=== PATIENT | female | born 1945 | race Caucasian/White ===

== ENCOUNTER 2024-10-24 15:24 | Inpatient (IN) | payer MEDICARE, MEDICAID, SELFPAY ==
[2024-10-24 15:44] VITALS: PULSE 85; O2SAT 99; BMI 19.4
[2024-10-24 15:49] VITALS: BP 150/60; PULSE 87; RESP 14; TEMP 36.8; O2SAT 93
--- NOTE | 2024-10-24 16:29 | EKG_ITS ---
[facility] Test Date: 2024-10-24 Pat Name: RICHARD HUANG Department: Room: - Gender: Female Stores Clerk: : [id number] Requested By: Roly Gibson Order Number: [id number] Reading MD: Roly Gibson Measurements Intervals [place] Rate: 82 P: 52 NC: 112 QRS: 76 QRSD: 79 T: 71 QT: 353 QTc: 415 Interpretive Statements SINUS RHYTHM WITH SHORT NC INTERVAL Compared to ECG 03/28/2024 12:31:59 Short NC interval now present Sinus tachycardia no longer present T-wave abnormality no longer present /store/S0/[id number].pdf
--- NOTE | 2024-10-24 16:44 | PC.NURSE ---
BROOKLYN KOCH WAS ABLE TO ANSWER SOME QUESTION IN REGARDS TO PATIENT MEDICAL HISTORY. 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 CURRENTLY PT ONLY RESPONSES TO PAIN STIMULI. PT DOES NOT RESPOND TO NAME. CAREGIVER CURRENTLY AT BEDSIDE JOY.
--- NOTE | 2024-10-24 18:09 | XR_ITS ---
Examination: AP chest single view TECHNIQUE: AP portable semiupright chest single view Date and time: October 24, 2024 1820 hours Comparison March 28, 2024 INDICATION: Chest pain shortness of breath beginning 2 days ago. FINDINGS: Normal heart size. Lungs are clear. The osseous structures are intact. IMPRESSION: No active disease.
--- NOTE | 2024-10-24 18:12 | PD.EDAMS ---
Altered Mental Status RME/HPI General Chief Complaint: Altered Mental Status Stated Complaint: SOB Time Seen by Provider: 10/24/24 21:45 Arrival date/time: 10/24/24 15:24 78-year-old female presents to the ED via EMS with an apparent complaint of weakness and altered mental status. Caregiver at bedside indicates the patient was normal on Sunday when she left her shift at the halfway. Care provider indicates that the hospice nurse believes the patient had pneumonia and started her on antibiotics which she has been taking since Sunday. She has had a decreased appetite. Caregiver denies fever or chills, cough or difficulty breathing, vomiting or diarrhea. She denies any knowledge of urinary frequency, hematuria, or foul-smelling urine. She normally drinks honey thickened liquids and eats small diced food. She has no G-tube. Mode of arrival: EMS Limitations: altered mental status and physical limitation Related Data Home Medications ?Medication ?Instructions ?Recorded ?Confirmed divalproex 250 mg tablet,delayed 250 mg PO TID #0 tabs 11/24/16 01/09/23 release (Depakote) mirtazapine 30 mg tablet 30 mg PO HS 10/24/22 01/09/23 olanzapine 10 mg tablet 10 mg PO QDAY 10/24/22 01/09/23 docusate sodium 250 mg capsule 250 mg PO BID 01/09/23 01/09/23 ergocalciferol (vitamin D2) 1,250 50,000 unit PO QWEEK 01/09/23 01/09/23 mcg (50,000 unit) capsule (Vitamin D2) melatonin 5 mg tablet 5 mg PO HS PRN Insomnia 01/09/23 01/09/23 omeprazole 20 mg capsule,delayed 20 mg PO ACBR 01/09/23 01/09/23 release risperidone 1 mg tablet 1 mg PO QDAY 01/09/23 01/09/23 Previous Rx's ?Medication ?Instructions ?Recorded paroxetine HCl 20 mg tablet 20 mg PO QDAY for anxiety #30 tabs 05/27/19 cefuroxime axetil 500 mg tablet 500 mg PO BID #14 tabs 03/28/24 cefuroxime axetil 500 mg tablet 500 mg PO BID #14 tabs 03/28/24 Allergies Allergy/AdvReac Type Severity Reaction Status Date / Time No Known Allergies Allergy Verified 02/11/24 18:06 Past Medical History Past Medical History NEUROLOGIC: Positive Neurological Disorders, Dementia and Alzheimer's Disease; Negative Cerebrovascular Accident, Transient Ischemic Attacks (TIA), Parkinson's Disease, Brain Tumor, Meningitis, Seizures, Epilepsy, Multiple Sclerosis, Cerebral Palsy, Amyotrophic Lateral Sclerosis (ALS/Felicia Gehrig's), Guillain-[place] Syndrome, Spina Bifida, Paralysis, Peripheral Neuropathy, St's Palsy, Subdural Hematoma, Migraine, Head Trauma, Spinal Cord Injury or Traumatic Brain Injury CARDIAC: Negative Cardiac Disorders or Congestive Heart Failure RESPIRATORY: Negative Chronic Obstructive Pulmonary Disease (COPD) GASTROINTESTINAL: Positive Gastrointestinal Disorders; Negative Hepatitis GENITOURINARY: Positive Genitourinary Disorders; Negative Renal Disease, Kidney Stones, Polycystic Kidney Disease, Neurogenic Bladder, Inguinal Hernia or Dialysis REPRODUCTIVE: Negative Endometriosis, Pelvic Inflammatory Disease, Previous Pregnancies or Uterine Prolapse MUSCULOSKELETAL: Positive Musculoskeletal Disorders; Negative Muscular Dystrophy, Myasthenia Gravis, Marfan's Syndrome, Arthritis, Rheumatoid Arthritis, Osteoporosis, Degenerative Disk Disease, Gout, Scoliosis, Carpal Tunnel Syndrome, Fibromyalgia, Fractures, Degenerative Joint Disease, Osteomyelitis or Poliovirus ENT: Positive Blind; Negative Cataracts, Glaucoma, Retinal Detachment, Macular Degeneration, Ear Infection, Deafness, Head Trauma or Eye Prosthesis ENDOCRINE: Negative Endocrine Disorders, Diabetes Mellitus Type 1 or Diabetes Mellitus Type 2 HEMATOLOGIC: Negative Blood Disorders PSYCHO/SOCIAL: Positive Psychiatric Problems and Schizophrenia; Negative Recreational Drug Use, Depression, Anxiety, Behavior Problems, Self-Mutilation, Attention Deficit Disorder, Attention Deficit Hyperactivity Disorder, Depression, Post Traumatic Stress Disorder or Eating Disorder OTHER HISTORY: Positive Hospitalization and Developmental Delay; Negative Autoimmune Disease, Down Syndrome, Autism, Shingles, Falls, Blood Transfusions, Blood Transfusion Reaction, Anesthesia Reactions, Organ Transplant, Chemotherapy, Radiation Therapy, Hyperbaric Therapy, MRSA, VRSA, Vancomycin-Resistant Enterococci, Human Immunodeficiency Virus (HIV), Chicken Pox, Measles, Mumps, Rubella ([place] Measles), Pertussis, Clostridium Difficile or Cancer Family History FAMILY HISTORY: Negative Family Psychiatric Problems, Family Respiratory Disorders, Family Cardiac Disorders, Family Gastrointestinal Problems, Family Cancer, Family Surgery or Family Anesthesia Reaction Surgical History SURGICAL: Positive Amputation; Negative Cardiac Surgery, Endocrine Surgery, Thyroidectomy, Ear Surgery, Tympanostomy Tube, Eye Surgery, Nose Surgery, Oral Surgery, Tonsillectomy, Adenoidectomy, Cochlear Implant, Corneal Transplant, Throat Surgery, Abdominal Surgery, Tracheostomy, Gastric Bypass Surgery, Gastrostomy, Bowel Surgery, Nephrectomy, Transurethral Resection, Joint Replacement, Open Reduction Internal Fixation, Arthroscopy, Neurologic Surgery, Brain Shunt, Mastectomy, Lumpectomy, Hysterectomy, Tubal Ligation, Section or Organ Transplant Social History SMOKING STATUS: Never smoker SUBSTANCE USE: does not use ED Exam Narrative Physical exam: Altered 78-year-old female, no acute distress. Initial vital signs BP 150/60, P87, RR 14, T98.2, 93% on 2 L via nasal cannula. Pupils are PERRL, unable to perform cranial nerve testing, lungs are diminished at bases, CV regular rate and rhythm with type murmur noted. 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 General Limitations: Present altered mental status and physical limitation Course Orders Category Date Time Status EKG (ED ONLY) *Do not use* NOW Care 10/24/24 16:29 Completed Straight [In and Out Catheter] X1 Care 10/24/24 18:28 Completed EKG (ED Only) Stat Exams 10/24/24 16:29 Draft XR chest 1V portable Stat Exams 10/24/24 18:09 Completed Blood Culture (Lab) Stat Lab 10/24/24 18:30 Received CBC Stat Lab 10/24/24 18:30 Completed CMP [Comprehensive Metabolic Panel] Stat Lab 10/24/24 18:30 Completed CRP [C-Reactive Protein] Stat Lab 10/24/24 18:30 Completed Lactic Acid [Lactate (Lactic Acid)] Stat Lab 10/24/24 18:30 Completed Lactic Acid, 3 HR Stat Lab 10/24/24 21:40 Ordered Procalcitonin Stat Lab 10/24/24 18:30 Completed Troponin I Stat Lab 10/24/24 18:30 Completed Urinalysis Stat Lab 10/24/24 20:21 Completed Urine Culture Stat Lab 10/24/24 20:21 Received Sodium Chloride 0.9% 500 ml [Ns] 500 ml Med 10/24/24 21:50 Active IV 999 mls/hr cefTRIAXone/D5w 1gm IV premix [Rocephin/D5w 1gm IV Med 10/24/24 21:48 Active premix] 1 gm in 50 ml IV X1 Vital Signs Vital signs: Vital Signs Temperature 98.2 F 10/24/24 15:49 Pulse Rate 87 10/24/24 15:49 Respiratory Rate 14 10/24/24 15:49 Blood Pressure 150/60 H 10/24/24 15:49 Pulse Oximetry (%) 93 L 10/24/24 15:49 Oxygen Delivery Method Nasal Cannula 10/24/24 15:49 Oxygen Flow Rate 2 10/24/24 15:49 Altered Mental Status Medications / Prescriptions Medication administrations:: Medication Administration History Ceftriaxone Sodium/Dextrose (Rocephin/D5w 1gm Iv Premix) 1 gm in 50 mls @ 100 mls/hr IV X1 ONE Stop: 10/24/24 22:17 Sodium Chloride (Ns) 500 mls @ 999 mls/hr IV .Q31M ONE Stop: 10/24/24 22:20 Discharge Plan Prescriptions/Referrals Prescriptions/Med Rec: No Action divalproex [Depakote] 250 MG tablet,delayed release (DR/EC) 250 mg PO TID Qty: 0 paroxetine HCl 20 mg tablet 20 mg PO QDAY Qty: 30 0RF olanzapine 10 mg tablet 10 mg PO QDAY mirtazapine 30 mg tablet 30 mg PO HS cefuroxime axetil 500 mg tablet 500 mg PO BID Qty: 14 0RF cefuroxime axetil 500 mg tablet 500 mg PO BID Qty: 14 0RF omeprazole 20 mg capsule,delayed release(DR/EC) 20 mg PO ACBR ergocalciferol (vitamin D2) [Vitamin D2] 1,250 mcg (50,000 unit) capsule 50,000 unit PO QWEEK docusate sodium 250 mg capsule 250 mg PO BID risperidone 1 mg tablet 1 mg PO QDAY melatonin 5 mg Tablet 5 mg PO HS PRN (Reason: Insomnia) Referrals: No Primary/Family,Physician [Primary Care Provider] - In 1 week Patient/Caregiver Discharge Instructions Print Language: Yoruba
[2024-10-24 18:43] LABS: Lactate (Lactic Acid) 3.5 mMol/L (0.4-2.0)
[2024-10-24 18:44] VITALS: BP 129/63; PULSE 87; RESP 15; O2SAT 98
[2024-10-24 18:44] LABS: Basophils % (Auto) 0 % (0-2.5); Eosinophils % (Auto) 0 % (0-10); Hematocrit 33.2 % (36.0-46.0); Hemoglobin 11.4 g/dL (12.0-16.0); Immature Granulocytes % (Auto) 1 % (0-0); Immature Granulocytes Auto 0.12 Thou/mm3 (0.00-0.00); Lymphocytes # (Auto) 1.1 Thou/mm3 (1.0-4.8); Lymphocytes % (Auto) 5 % (10-50); Mean Corpuscular HGB Conc 34.3 g/dl (31.0-37.0); Mean Corpuscular Hemoglobin 30.9 pg (25.0-35.0); Mean Corpuscular Volume 90 fL (80-100); Monocytes # (Auto) 1.2 Thou/mm3 (0.0-0.8); Monocytes % (Auto) 6 % (0-12); Neutrophils # (Auto) 18.1 Thou/mm3 (1.8-7.7); Neutrophils % (Auto) 88 % (37-80); Nucleated Red Blood Cell % 0 /100 WBC (0); Platelet Count 194 Thou/mm3 (140-440); Red Blood Count 3.69 Miln/mm3 (4.00-5.20); White Blood Count 20.5 Thou/mm3 (3.6-11.0)
[2024-10-24 19:10] LABS: Alanine Aminotransferase 16 U/L (10-49); Albumin, Serum 3.7 gm/dL (3.4-4.8); Albumin/Globulin Ratio 1.4 (1.2-2.2); Alkaline Phosphatase 79 U/L (46-116); Anion Gap 7 (7-16); Aspartate Amino Transferase 22 U/L (0-34); BUN/Creatinine Ratio 29 Ratio (12-20); Bilirubin,Total 0.2 mg/dL (0.3-1.2); Blood Urea Nitrogen 20 mg/dL (9-23); Calcium 9.4 mg/dL (8.3-10.6); Calcium (Corrected) 9.6 mg/dL (8.5-10.1); Carbon Dioxide 29.4 mMol/L (20.0-31.0); Chloride 102 mMol/L (98-107); Creatinine (Component) 0.7 mg/dL (0.6-1.3); Estimated Creatinine Clearance 48.1 mL/min (>60); Globulin 2.7 gm/dL (2.3-3.5); Glucose 117 mg/dL (74-106); Osmolality,Calculated 279 (275-295); Potassium 4.8 mMol/L (3.4-5.1); Sodium 138 mMol/L (136-145); Total Protein 6.4 gm/dL (5.7-8.2); Troponin I < 0.020 ng/mL (0.0-0.045); eGFR > 60 See Note
[2024-10-24 19:38] VITALS: BP 135/59; PULSE 86; RESP 14; O2SAT 94
[2024-10-24 20:07] LABS: C-Reactive Protein 12.8 mg/dL (0.0-0.9); Procalcitonin 0.13 ng/ml (0.0-0.49)
[2024-10-24 20:44] LABS: Collection Type, Urine Catheter; RBC,Urine 0 /hpf (0-3); Squamous Epithelial Cell,Urine 0 /hpf (0-5)
[2024-10-24 20:51] LABS: Bacteria,Urine 4+; Bilirubin,Urine Negative (Negative); Blood,Urine Negative (Negative); Clarity,Urine Clear (Clear/Hazy); Color,Urine Yellow (Lt Yel-Yel); Glucose, Urine Negative (Negative); Ketones,Urine 1+ (Negative); Leukocyte Esterase,Urine Positive (Negative); Nitrite,Urine Positive (Negative); Protein,Urine Trace (Neg - Trace); Specific Gravity,Urine 1.028 (1.001-1.035); WBC,Urine 8 /hpf (0-5)
[2024-10-24 21:40] LABS: Reflex Lactate? Y
[2024-10-24] MEDS: cefTRIAXone/D5w 1gm IV premix 1 GM/50 ML BAG IV (22:03)
[2024-10-24] MEDS: SODIUM CHLORIDE 0.9% 500 ML 500 ML 999 ML IV (22:04)
[2024-10-24 22:15] LABS: Lactic Acid, 3 HR 1.8 mMol/L (0.4-2.0)
--- NOTE | 2024-10-24 22:23 | PD.HHHP ---
Documentation for date of: 10/24/24 HPI - Hospitalist History of Present Illness History of Present Illness: SOB History of present illness: A 78-year-old female presented to the ER with the chief complaint of decreased appetite and shortness of breath. The patient was noted by care staff to have a decreased appetite and some shortness of breath beginning possibly yesterday, with more notable decline today prompting a call to EMS. She has had progressive weakness and appeared altered per staff. She was started on antibiotics for presumed pneumonia on Sunday by hospice. She also c/o slight cough. Staff denied fever, chills, vomiting, diarrhea, urinary symptoms, or chest pain. The patient has a history of Alzheimer's dementia, developmental delay, and schizophrenia. Surgical history includes RLE amputation. Current medications unknown. Social history includes non-smoker, no alcohol or drug use. Functionally, she is non-ambulatory and dependent on transfers between bed and chair; she can feed herself and speaks only a few words. She is on hospice care with comfort care code status. Lives in a long term, not . In the ER, vital signs recorded as temp 98.2, HR 87, RR 14, BP 150/60. Labs revealed WBC 20.5, hemoglobin 11.4, platelets 194, sodium 138, potassium 4.8, BUN 20, creatinine 0.7, glucose 117, lactic acid 3.5, CRP 12.8, procalcitonin 0.13. UA showed WBC 8. CXR demonstrated no active disease. EKG showed sinus rhythm. Admit for sepsis evaluation and treatment. Review of Systems Review of Systems ROS Unobtainable: unobtainable due to medical condition Past Medical History Past Medical History NEUROLOGIC: Positive Neurological Disorders, Dementia and Alzheimer's Disease; Negative Cerebrovascular Accident, Transient Ischemic Attacks (TIA), Parkinson's Disease, Brain Tumor, Meningitis, Seizures, Epilepsy, Multiple Sclerosis, Cerebral Palsy, Amyotrophic Lateral Sclerosis (ALS/Felicia Gehrig's), Guillain-[place] Syndrome, Spina Bifida, Paralysis, Peripheral Neuropathy, St's Palsy, Subdural Hematoma, Migraine, Head Trauma, Spinal Cord Injury or Traumatic Brain Injury CARDIAC: Negative Cardiac Disorders or Congestive Heart Failure RESPIRATORY: Negative Chronic Obstructive Pulmonary Disease (COPD) GASTROINTESTINAL: Positive Gastrointestinal Disorders; Negative Hepatitis GENITOURINARY: Positive Genitourinary Disorders; Negative Renal Disease, Kidney Stones, Polycystic Kidney Disease, Neurogenic Bladder, Inguinal Hernia or Dialysis REPRODUCTIVE: Negative Endometriosis, Pelvic Inflammatory Disease, Previous Pregnancies or Uterine Prolapse MUSCULOSKELETAL: Positive Musculoskeletal Disorders; Negative Muscular Dystrophy, Myasthenia Gravis, Marfan's Syndrome, Arthritis, Rheumatoid Arthritis, Osteoporosis, Degenerative Disk Disease, Gout, Scoliosis, Carpal Tunnel Syndrome, Fibromyalgia, Fractures, Degenerative Joint Disease, Osteomyelitis or Poliovirus ENT: Positive Blind; Negative Cataracts, Glaucoma, Retinal Detachment, Macular Degeneration, Ear Infection, Deafness, Head Trauma or Eye Prosthesis ENDOCRINE: Negative Endocrine Disorders, Diabetes Mellitus Type 1 or Diabetes Mellitus Type 2 HEMATOLOGIC: Negative Blood Disorders PSYCHO/SOCIAL: Positive Psychiatric Problems and Schizophrenia; Negative Recreational Drug Use, Depression, Anxiety, Behavior Problems, Self-Mutilation, Attention Deficit Disorder, Attention Deficit Hyperactivity Disorder, Depression, Post Traumatic Stress Disorder or Eating Disorder OTHER HISTORY: Positive Hospitalization and Developmental Delay; Negative Autoimmune Disease, Down Syndrome, Autism, Shingles, Falls, Blood Transfusions, Blood Transfusion Reaction, Anesthesia Reactions, Organ Transplant, Chemotherapy, Radiation Therapy, Hyperbaric Therapy, MRSA, VRSA, Vancomycin-Resistant Enterococci, Human Immunodeficiency Virus (HIV), Chicken Pox, Measles, Mumps, Rubella ([place] Measles), Pertussis, Clostridium Difficile or Cancer Family History FAMILY HISTORY: Negative Family Psychiatric Problems, Family Respiratory Disorders, Family Cardiac Disorders, Family Gastrointestinal Problems, Family Cancer, Family Surgery or Family Anesthesia Reaction Surgical History SURGICAL: Positive Amputation; Negative Cardiac Surgery, Endocrine Surgery, Thyroidectomy, Ear Surgery, Tympanostomy Tube, Eye Surgery, Nose Surgery, Oral Surgery, Tonsillectomy, Adenoidectomy, Cochlear Implant, Corneal Transplant, Throat Surgery, Abdominal Surgery, Tracheostomy, Gastric Bypass Surgery, Gastrostomy, Bowel Surgery, Nephrectomy, Transurethral Resection, Joint Replacement, Open Reduction Internal Fixation, Arthroscopy, Neurologic Surgery, Brain Shunt, Mastectomy, Lumpectomy, Hysterectomy, Tubal Ligation, Section or Organ Transplant Social History SMOKING STATUS: Never smoker SUBSTANCE USE: does not use Meds Home Medications and Allergies Home Medications ?Medication ?Instructions ?Recorded ?Confirmed ?Type divalproex 250 mg tablet,delayed 250 mg PO TID #0 tabs 11/24/16 01/09/23 History release (Depakote) mirtazapine 30 mg tablet 30 mg PO HS 10/24/22 01/09/23 History olanzapine 10 mg tablet 10 mg PO QDAY 10/24/22 01/09/23 History docusate sodium 250 mg capsule 250 mg PO BID 01/09/23 01/09/23 History ergocalciferol (vitamin D2) 1,250 50,000 unit PO QWEEK 01/09/23 01/09/23 History mcg (50,000 unit) capsule (Vitamin D2) melatonin 5 mg tablet 5 mg PO HS PRN Insomnia 01/09/23 01/09/23 History omeprazole 20 mg capsule,delayed 20 mg PO ACBR 01/09/23 01/09/23 History release risperidone 1 mg tablet 1 mg PO QDAY 01/09/23 01/09/23 History Allergies Allergy/AdvReac Type Severity Reaction Status Date / Time No Known Allergies Allergy Verified 02/11/24 18:06 Exam Vital Signs Temp Pulse Resp BP Pulse Ox O2 Del Method O2 Flow Rate 98.2 F 86 14 135/59 H 94 L Room Air 2 10/24/24 15:49 10/24/24 19:38 10/24/24 19:38 10/24/24 19:38 10/24/24 19:38 10/24/24 18:44 10/24/24 15:49 Narrative Constitutional: Female, in no apparent distress, on N/C. Eyes: Extraocular movements intact. No ptosis. PERRL. Neck: Supple, trachea midline. No thyromegaly. Lungs: Clear and good breath sounds equally. No wheezing. No rhonchi. CV: S1, S2. Regular rate and rhythm. GI: Soft, nontender. No HSM. Musculoskeletal: No cyanosis, clubbing or edema. S/P RLE amputation. Neuro: Unable to communicate. Psychiatric: No signs of depression and is nonfocal. Skin: Warm and dry. Results - Hospitalist Labs Diagrams: 10/24/24 18:30 10/24/24 18:30 Labs: Short CBC 10/24/24 Range/Units 18:30 WBC 20.5 H (3.6-11.0) Thou/mm3 Hgb 11.4 L (12.0-16.0) g/dL Hct 33.2 L (36.0-46.0) % Plt Count 194 (140-440) Thou/mm3 BMP 10/24/24 18:30 Sodium 138 Potassium 4.8 Chloride 102 Carbon Dioxide 29.4 BUN 20 Creatinine 0.7 Glucose 117 H Calcium 9.4 Cardiac Enzymes 10/24/24 Range/Units 18:30 Troponin I < 0.020 (0.0-0.045) ng/mL Liver Function 10/24/24 Range/Units 18:30 Total Bilirubin 0.2 L (0.3-1.2) mg/dL AST 22 (0-34) U/L ALT 16 (10-49) U/L Alkaline Phosphatase 79 (46-116) U/L Albumin 3.7 (3.4-4.8) gm/dL Urine 10/24/24 10/24/24 Range/Units 18:44 20:21 Urine Color Cancelled Yellow Urine Clarity Cancelled Clear Urine pH Cancelled 6.0 Ur Specific [place] Cancelled 1.028 Urine Protein Cancelled Trace Urine Glucose (UA) Cancelled Negative Assessment & Plan -Hospitalist Additional Assessment #Sepsis #Lactic acidosis Assessment: Altered mental status, decreased appetite, mild dyspnea; WBC 20.5, lactic acid 3.5, CRP 12.8; source unclear (CXR negative, mild cough, WBC in urine); qSOFA = 1 (AMS); on antibiotics since Sunday per hospice for presumed pneumonia Plan: - Continue empiric IV antibiotics for possible pneumonia or urinary source - IV hydration - Obtain blood and urine cultures - Monitor vitals, mental status, urine output, and lactate clearance #Dementia (Alzheimer?s) #Developmental Delay and Schizophrenia Assessment: Advanced cognitive impairment with minimal speech, baseline altered mentation Plan: - Swallow evaluation - Pending medication reconciliation #Comfort Care / Hospice Status Assessment: Enrolled in hospice Plan: - There is no POLST form in the chart; try to obtain the official document, default to full code for now Quality Measures Quality Measures VTE prophylaxis Advance care planning discussed with:: other
[2024-10-24 23:06] VITALS: BP 135/74; PULSE 85; RESP 16; O2SAT 99
[2024-10-24] MEDS: SODIUM CHLORIDE 0.9% 1000 ML 1,000 ML 75 ML IV (23:25)
[2024-10-25] VITALS (8 sets, daily range): BP systolic 133–166; BP diastolic 58–81; PULSE 71–98; RESP 12–18; TEMP 36.1–37; O2SAT 96–100; BMI 18.2
[2024-10-25 06:11] LABS: Basophils % (Auto) 0 % (0-2.5); Eosinophils % (Auto) 0 % (0-10); Hematocrit 31.8 % (36.0-46.0); Hemoglobin 11.1 g/dL (12.0-16.0); Immature Granulocytes % (Auto) 1 % (0-0); Immature Granulocytes Auto 0.08 Thou/mm3 (0.00-0.00); Lymphocytes # (Auto) 1.1 Thou/mm3 (1.0-4.8); Lymphocytes % (Auto) 8 % (10-50); Mean Corpuscular HGB Conc 34.9 g/dl (31.0-37.0); Mean Corpuscular Volume 89 fL (80-100); Monocytes # (Auto) 0.8 Thou/mm3 (0.0-0.8); Monocytes % (Auto) 6 % (0-12); Neutrophils # (Auto) 12.4 Thou/mm3 (1.8-7.7); Neutrophils % (Auto) 86 % (37-80); Nucleated Red Blood Cell % 0 /100 WBC (0); Platelet Count 162 Thou/mm3 (140-440); RDW Standard Deviation 39.3 fL (36.4-46.3); Red Blood Count 3.58 Miln/mm3 (4.00-5.20); White Blood Count 14.5 Thou/mm3 (3.6-11.0)
[2024-10-25 06:18] LABS: Anion Gap 10 (7-16); BUN/Creatinine Ratio 26 Ratio (12-20); Blood Urea Nitrogen 18 mg/dL (9-23); Calcium 8.8 mg/dL (8.3-10.6); Carbon Dioxide 26.9 mMol/L (20.0-31.0); Chloride 105 mMol/L (98-107); Creatinine (Component) 0.7 mg/dL (0.6-1.3); Estimated Creatinine Clearance 48.1 mL/min (>60); Glucose 100 mg/dL (74-106); Osmolality,Calculated 285 (275-295); Potassium 4.7 mMol/L (3.4-5.1); Sodium 142 mMol/L (136-145); eGFR > 60 See Note
--- NOTE | 2024-10-25 10:18 | PC.NURSE ---
REPORT GIVEN TO JENNIFER ON MED/SURGE FLOOR. PT TO GO TO ROOM [id number]
[2024-10-25] MEDS: ENOXAPARIN SOD INJ 40 MG/0.4 ML SYRINGE SC (10:28)
--- NOTE | 2024-10-25 10:43 | ESPR_ITS ---
Documentation for date of: 10/25/24 Subjective Subjective Interval history: Overnight admission, no acute events noted. Seen and examined at bedside in ED with window display designer present at bedside. States that patient appears to be off compared to her baseline, described as appearing more tired, weak, with associated cough and shortness of breath. Also spoke to brother who is patient's decision maker and clarified code status, which was changed from full code to DNR/DNI. Otherwise, at this time will continue to treat patient for urinary tract infection per his wishes. Exam Vital Signs Temp Pulse Resp BP Pulse Ox O2 Del Method O2 Flow Rate 98.3 F 83 16 157/72 H 100 Nasal Cannula 3 10/25/24 09:47 10/25/24 09:47 10/25/24 09:47 10/25/24 09:47 10/25/24 09:47 10/25/24 09:47 10/25/24 09:47 Narrative Exam General: alert, does not respond to questions, yells intermittently HEENT: NC/AT, mucous membranes moist, bilateral sclera anicteric Cardiovascular: regular rate and rhythm, S1/S2 present, no murmurs appreciated Pulmonary: clear to auscultation bilaterally, no rales/rhonchi/wheezes Abdominal: soft, non-tender, non-distended, no rebound/guarding, normal bowel sounds present Musculoskeletal: right lower extremity amputation, no peripheral edema Skin: warm and dry, intact, no rashes Objective Labs 10/26/24 07:10 10/26/24 07:10 Labs: Laboratory Results - last 24 hr 10/24/24 10/24/24 10/24/24 18:30 18:44 20:21 WBC 20.5 H RBC 3.69 L Hgb 11.4 L Hct 33.2 L MCV 90 MCH 30.9 MCHC 34.3 RDW Std Deviation 41.0 Plt Count 194 Neut % (Auto) 88 H Lymph % (Auto) 5 L [place] % (Auto) 6 Eos % (Auto) 0 Baso % (Auto) 0 Neut # (Auto) 18.1 H Lymph # (Auto) 1.1 [place] # (Auto) 1.2 H Eos # (Auto) 0.0 Baso # (Auto) 0.0 Immature Gran # (Auto) 0.12 H Absolute Nucleated RBC 0.00 Immature Gran % 1 H Nucleated RBC % 0 Sodium 138 Potassium 4.8 Chloride 102 Carbon Dioxide 29.4 Anion Gap 7 BUN 20 Creatinine 0.7 Estim Creat Clear Calc 48.1 L eGFR > 60 BUN/Creatinine Ratio 29 H Glucose 117 H Calculated Osmolality 279 Lactic Acid 3.5 H Calcium 9.4 Corrected Calcium 9.6 Total Bilirubin 0.2 L AST 22 ALT 16 Alkaline Phosphatase 79 Troponin I < 0.020 C-Reactive Prot, Quant 12.8 H Total Protein 6.4 Albumin 3.7 Globulin 2.7 Albumin/Globulin Ratio 1.4 Procalcitonin 0.13 Ur Collection Type Cancelled Catheter Urine Color Cancelled Yellow Urine Clarity Cancelled Clear Urine pH Cancelled 6.0 Ur Specific [place] Cancelled 1.028 Urine Protein Cancelled Trace Urine Glucose (UA) Cancelled Negative Urine Ketones Cancelled 1+ A Urine Blood Cancelled Negative Urine Nitrite Cancelled Positive Urine Bilirubin Cancelled Negative Urine Urobilinogen (Auto) Cancelled 4.0 Ur Leukocyte Esterase Cancelled Positive Urine RBC Cancelled 0 Urine WBC Cancelled 8 H Ur Squamous Epith Cells Cancelled 0 Ur Transition Epith Cell Cancelled Ur Renal Epithelial Cell Cancelled Calcium Carbonate Cryst Cancelled Calcium Phosphate Cryst Cancelled Calcium Oxalate Crystal Cancelled Leucine Crystals Cancelled Cystine Crystals Cancelled Uric Acid Crystals Cancelled Triple Phos Crystals Cancelled Tyrosine Crystals Cancelled Amorphous Crystals Cancelled Urine Bacteria Cancelled 4+ A Cellular Casts Cancelled Epithelial Casts Cancelled Fatty Casts Cancelled Hyaline Casts Cancelled Granular Casts Cancelled Waxy Casts Cancelled Broad Casts Cancelled RBC Casts Cancelled Urine Mucus Cancelled Urine Trichomonas Cancelled Ur Yeast w Hyphae Cancelled Urine Yeast (Budding) Cancelled Urine Sperm Cancelled Ur Oval Fat Bodies Cancelled 10/24/24 10/25/24 10/25/24 22:05 05:18 06:03 WBC 14.5 H D RBC 3.58 L Hgb 11.1 L Hct 31.8 L MCV 89 MCH 31.0 MCHC 34.9 RDW Std Deviation 39.3 Plt Count 162 D Neut % (Auto) 86 H Lymph % (Auto) 8 L [place] % (Auto) 6 Eos % (Auto) 0 Baso % (Auto) 0 Neut # (Auto) 12.4 H Lymph # (Auto) 1.1 [place] # (Auto) 0.8 Eos # (Auto) 0.0 Baso # (Auto) 0.0 Immature Gran # (Auto) 0.08 H Absolute Nucleated RBC 0.00 Immature Gran % 1 H Nucleated RBC % 0 Sodium 142 Potassium 4.7 Chloride 105 Carbon Dioxide 26.9 Anion Gap 10 BUN 18 Creatinine 0.7 Estim Creat Clear Calc 48.1 L eGFR > 60 BUN/Creatinine Ratio 26 H Glucose 100 Calculated Osmolality 285 Lactic Acid 1.8 Calcium 8.8 Corrected Calcium Total Bilirubin AST ALT Alkaline Phosphatase Troponin I C-Reactive Prot, Quant Total Protein Albumin Globulin Albumin/Globulin Ratio Procalcitonin Ur Collection Type Urine Color Urine Clarity Urine pH Ur Specific [place] Urine Protein Urine Glucose (UA) Urine Ketones Urine Blood Urine Nitrite Urine Bilirubin Urine Urobilinogen (Auto) Ur Leukocyte Esterase Urine RBC Urine WBC Ur Squamous Epith Cells Ur Transition Epith Cell Ur Renal Epithelial Cell Calcium Carbonate Cryst Calcium Phosphate Cryst Calcium Oxalate Crystal Leucine Crystals Cystine Crystals Uric Acid Crystals Triple Phos Crystals Tyrosine Crystals Amorphous Crystals Urine Bacteria Cellular Casts Epithelial Casts Fatty Casts Hyaline Casts Granular Casts Waxy Casts Broad Casts RBC Casts Urine Mucus Urine Trichomonas Ur Yeast w Hyphae Urine Yeast (Budding) Urine Sperm Ur Oval Fat Bodies Quality Measures Quality Measures VTE prophylaxis Advance care planning discussed with:: patient and sibling Assessment & Plan Assessment Current Active Medications: Generic Name Dose Route Start Last Admin Trade Name Freq PRN Reason Stop Dose Admin Acetaminophen 650 mg 10/24/24 22:20 Acetaminophen 325 Mg Tablet PO 11/23/24 22:19 Q6H PRN Fever >101.5 Enoxaparin Sodium 40 mg 10/25/24 09:00 10/25/24 10:28 Enoxaparin Sod Inj 40 Mg/0.4 Ml Syringe SC 11/08/24 08:59 40 mg QDAY PAULINA Administration Sodium Chloride 1,000 mls @ 75 mls/hr 10/24/24 22:30 10/24/24 23:25 Ns IV 11/23/24 22:29 75 mls/hr .[id number] PAULINA Administration Ceftriaxone Sodium/Dextrose 1 gm in 50 mls @ 100 mls/hr 10/25/24 21:00 Rocephin/D5w 1gm Iv Premix IV 11/01/24 20:59 HS PAULINA Plan Kaylene Gordon is a 78-year-old female with a past medical history of Alzheimer's dementia, schizophrenia, and developmental delay who presented on the ED on 10/24 for acute encephalopathy likely secondary to urinary tract infection. #Sepsis secondary to UTI evidenced by lactic acidosis #Lactic acidosis Altered mental status, decreased appetite, mild dyspnea; WBC 20.5, lactic acid 3.5 to 1.8, CRP 12.8; source unclear (CXR negative, mild cough, WBC in urine); qSOFA = 1 (AMS); on antibiotics since Sunday per hospice for presumed pneumonia ? Continue ceftriaxone 1 g IV HS ? IV hydration ? Obtain blood and urine cultures ? Monitor vitals, mental status, urine output, and lactate clearance #Anxiety #Agitation ? Alprazolam 0.5 mg PO TID PRN ? Morphine 1 mg PO q4h PRN #? History of seizures ? Divalproex 250 mg PO TID #Insomnia ? Melatonin 6 mg PO HS PRN ? Trazodone 50 mg PO HS #Dementia (Alzheimer?s) #Developmental delay #Schizophrenia Advanced cognitive impairment with minimal speech, baseline altered mentation Hospital management: Disposition: treatment of UTI, pending cultures Diet: dysphagia 2 - mechanical altered Lines: PIV DVT prophylaxis: enoxaparin 40 mg SC daily CODE STATUS: DNR ----- Plan discussed with attending physician Dr. Kelli Lopez MD PGY-1 Internal Medicine Attending Provider Attestation/Addendum I have discussed and was present for the essential components of the history, physical examination, diagnosis, and treatment plan with the resident. I agree with the patient's care as documented by the resident and amended herein by me. Rui Pereira DO. Patient seen and evaluated this AM. No acute events No acute events overnight, vital signs stable, patient afebrile. Patient presently on nasal cannula 2 L, SpO2 96%. WBC significantly improved to 14.5, hemoglobin stable at 11.1. CMP largely unremarkable. Initial chest x-ray on admission unremarkable UA was positive, WBCs were 8. Patient unable to communicate discomfort or any urinary tract symptoms. At this time we will continue ceftriaxone for UTI. Of note it is even unclear why the patient came to the hospital she is on hospice care. It appears as if the care facility made the decision to bring her to the hospital not the patient's decision maker which apparently is her son who lives out of state. The patient is apparently DNR/DNI per son however we do not have documentation as such. Will investigate further, social work notified. Will continue to monitor closely while she is here and treat her active infection. Cultures were also drawn and are pending, will follow-up.overnight, Although this document has been carefully reviewed, there may still be some phonetic and other typographical errors. These errors are purely grammatical due to imperfections in the software program and should not be construed in any way to compromise the substance of the patient's medical care during this visit.
[2024-10-25] MEDS: SODIUM CHLORIDE 0.9% 1000 ML 1,000 ML 75 ML IV (14:25)
[2024-10-25] MEDS: ALPRazoLAM 0.25 MG TABLET 0.5 MG PO (17:28)
[2024-10-25] MEDS: MORPHINE SULF INJ 10 MG/ML VIAL IVP ×2 (18:24→23:43)
[2024-10-25] MEDS: cefTRIAXone/D5w 1gm IV premix 1 GM/50 ML BAG IV (21:02)
[2024-10-25] MEDS: traZODone HCL 50 MG TABLET PO (21:12)
[2024-10-25] MEDS: DIVALPROEX SOD EC 125 MG TABEC 250 MG PO (21:27)
[2024-10-26] VITALS: BP 100/58; PULSE 60; RESP 16; TEMP 36.3; O2SAT 94
--- NOTE | 2024-10-26 01:30 | XR_ITS ---
Examination: Transvaginal ultrasound of the pelvis, complete Technique: Transvaginal sonographic images pelvis performed using carlisle scale imaging Exam date and time: October 26, 2024, 1348 hrs. Indications: Drainage and swelling in the lingular region Findings: Soft tissue swelling. Irregular mixed density lesion at the area concern left mid tibia, measuring 2.8 x 1.5 x 1.5 cm Impression: Soft tissue abscess at the area of concern, 2.8 x 1.5 x 1.5 cm.
[2024-10-26] MEDS: MELATONIN 3 MG TABLET 6 MG PO (02:11)
[2024-10-26] MEDS: SODIUM CHLORIDE 0.9% 1000 ML 1,000 ML 75 ML IV ×2 (03:15→18:40)
[2024-10-26 04:00] VITALS: BP 143/57; PULSE 70; RESP 16; TEMP 36.6; O2SAT 91
[2024-10-26] MEDS: DIVALPROEX SOD EC 125 MG TABEC 250 MG PO ×3 (06:26→21:03)
[2024-10-26 07:49] LABS: Anion Gap 6 (7-16); BUN/Creatinine Ratio 24 Ratio (12-20); Basophils % (Auto) 0 % (0-2.5); Blood Urea Nitrogen 12 mg/dL (9-23); Calcium 8.1 mg/dL (8.3-10.6); Carbon Dioxide 25.9 mMol/L (20.0-31.0); Chloride 105 mMol/L (98-107); Creatinine (Component) 0.5 mg/dL (0.6-1.3); Eosinophils # (Auto) 0.1 Thou/mm3 (0.0-0.5); Eosinophils % (Auto) 1 % (0-10); Glucose 98 mg/dL (74-106); Hematocrit 27.6 % (36.0-46.0); Hemoglobin 9.4 g/dL (12.0-16.0); Immature Granulocytes % (Auto) 0 % (0-0); Immature Granulocytes Auto 0.04 Thou/mm3 (0.00-0.00); Lymphocytes # (Auto) 1.6 Thou/mm3 (1.0-4.8); Lymphocytes % (Auto) 14 % (10-50); Mean Corpuscular HGB Conc 34.1 g/dl (31.0-37.0); Mean Corpuscular Hemoglobin 30.5 pg (25.0-35.0); Mean Corpuscular Volume 90 fL (80-100); Monocytes # (Auto) 1.2 Thou/mm3 (0.0-0.8); Monocytes % (Auto) 11 % (0-12); Neutrophils # (Auto) 8.3 Thou/mm3 (1.8-7.7); Neutrophils % (Auto) 74 % (37-80); Nucleated Red Blood Cell % 0 /100 WBC (0); Osmolality,Calculated 273 (275-295); Platelet Count 185 Thou/mm3 (140-440); Red Blood Count 3.08 Miln/mm3 (4.00-5.20); Sodium 137 mMol/L (136-145); White Blood Count 11.2 Thou/mm3 (3.6-11.0); eGFR > 60 See Note
[2024-10-26 08:00] VITALS: BP 139/78; PULSE 76; RESP 18; TEMP 36.5; O2SAT 94
[2024-10-26] MEDS: ENOXAPARIN SOD INJ 40 MG/0.4 ML SYRINGE SC (08:14)
[2024-10-26] MEDS: ALPRazoLAM 0.25 MG TABLET 0.5 MG PO ×2 (08:15→16:18)
[2024-10-26] MEDS: MORPHINE SULF INJ 10 MG/ML VIAL IVP ×2 (09:58→17:41)
--- NOTE | 2024-10-26 11:23 | PC.SS ---
Kaylene Gordon is a 78-year-old female admitted to [facility] for Sepsis. Pt is a resident of [facility] and is aligned with [facility]. Pts worker is Gisella Goldman [phone]. Pts conservator is her Brother Rafiq Gordon [phone].SS spoke to caregiver at bedside [place] who reports pt is a max assist and does have behavioral issues, such as bitching, yelling, and removing of clothing. Pts PCP is Dr. Jimenez from [facility]. Pt will return to [facility] upon DC. cooler supervisor is Gay Montez [phone]. SS will remain available for any additional needs or concerns. Conservator: Brothfranchesca Carlos [phone] [facility] Worker: Gisella Goldman [phone] DC plan: [facility]
--- NOTE | 2024-10-26 11:54 | ESPR_ITS ---
Documentation for date of: 10/26/24 Subjective Subjective Interval history: No acute overnight events noted but noted to be yelling throughout the night and disturbing others on the floor. Spoke to planning analyst again at bedside and states that this is her normal behavior. Patient has been restarted on her home alprazolam, lorazepam, and morphine. Otherwise, also noted to have swelling, erythema, and discharge from left labia and so ultrasound was ordered that showed 2.8 x 1.5 x 1.5 cm soft tissue abscess. Vancomycin was started and culture sent. No fevers overnight, WBC downtrending from 14.5 to 11, hemoglobin noted to drop from 11 to 9.4 and staff did not notice any blood in stool or urine. CHEM panel largely unremarkable. Exam Vital Signs Temp Pulse Resp BP Pulse Ox O2 Del Method O2 Flow Rate 97.7 F 76 18 139/78 H 94 L Nasal Cannula 2 10/26/24 08:00 10/26/24 08:00 10/26/24 08:00 10/26/24 08:00 10/26/24 08:00 10/26/24 08:00 10/26/24 08:00 Narrative Exam General: alert, does not respond to questions, yells intermittently HEENT: NC/AT, mucous membranes moist, bilateral sclera anicteric Cardiovascular: regular rate and rhythm, S1/S2 present, no murmurs appreciated Pulmonary: clear to auscultation bilaterally, no rales/rhonchi/wheezes Abdominal: soft, non-tender, non-distended, no rebound/guarding, normal bowel sounds present Musculoskeletal: right lower extremity amputation, no peripheral edema Skin: warm and dry, intact, no rashes Objective Labs 10/26/24 07:10 10/26/24 07:10 Labs: Laboratory Results - last 24 hr 10/26/24 07:10 WBC 11.2 H RBC 3.08 L Hgb 9.4 L Hct 27.6 L MCV 90 MCH 30.5 MCHC 34.1 RDW Std Deviation 38.0 Plt Count 185 Neut % (Auto) 74 Lymph % (Auto) 14 [place] % (Auto) 11 Eos % (Auto) 1 Baso % (Auto) 0 Neut # (Auto) 8.3 H Lymph # (Auto) 1.6 [place] # (Auto) 1.2 H Eos # (Auto) 0.1 Baso # (Auto) 0.0 Immature Gran # (Auto) 0.04 H Absolute Nucleated RBC 0.00 Immature Gran % 0 Nucleated RBC % 0 Sodium 137 Potassium 4.0 D Chloride 105 Carbon Dioxide 25.9 Anion Gap 6 L BUN 12 Creatinine 0.5 L Estim Creat Clear Calc 63.0 eGFR > 60 BUN/Creatinine Ratio 24 H Glucose 98 Calculated Osmolality 273 L Calcium 8.1 L Quality Measures Quality Measures VTE prophylaxis Advance care planning discussed with:: patient, sibling and other (planning analyst) Assessment & Plan Assessment Current Active Medications: Generic Name Dose Route Start Last Admin Trade Name Freq PRN Reason Stop Dose Admin Acetaminophen 650 mg 10/24/24 22:20 Acetaminophen 325 Mg Tablet PO 11/23/24 22:19 Q6H PRN Fever >101.5 Alprazolam 0.5 mg 10/25/24 15:03 10/26/24 08:15 Alprazolam 0.25 Mg Tablet PO 10/30/24 15:02 0.5 mg TID PRN Administration agitation Divalproex Sodium 250 mg 10/25/24 22:00 10/26/24 06:26 Divalproex Sod Ec 125 Mg Tabec PO 11/24/24 21:59 250 mg TID PAULINA Administration Enoxaparin Sodium 40 mg 10/25/24 09:00 10/26/24 08:14 Enoxaparin Sod Inj 40 Mg/0.4 Ml Syringe SC 11/08/24 08:59 40 mg QDAY PAULINA Administration Sodium Chloride 1,000 mls @ 75 mls/hr 10/24/24 22:30 10/26/24 03:15 Ns IV 11/23/24 22:29 75 mls/hr .[id number] PAULINA Administration Ceftriaxone Sodium/Dextrose 1 gm in 50 mls @ 100 mls/hr 10/25/24 21:00 10/25/24 21:02 Rocephin/D5w 1gm Iv Premix IV 11/01/24 20:59 100 mls/hr HS PAULINA Administration Vancomycin/Sodium Chloride 200 mls @ 120 mls/hr 10/26/24 12:00 Vancomycin/Ns 1 Gm Ivpb IV 10/26/24 13:39 X1 ONE Lorazepam 1 mg 10/26/24 08:19 Lorazepam 0.5 Mg Tablet PO QDAY PRN agitation Melatonin 6 mg 10/25/24 15:03 10/26/24 02:11 Melatonin 3 Mg Tablet PO 11/24/24 15:02 6 mg HS PRN Administration Insomnia Morphine Sulfate 1 mg 10/25/24 15:13 10/26/24 09:58 Morphine Sulf Inj 10 Mg/Ml Vial IVP 10/30/24 15:12 1 mg Q4HR PRN Administration PAIN Pharmacy Consult 1 each 10/26/24 11:45 Vancomycin Pharmacy To Dose 1 Each Each IV 11/25/24 11:44 QDAY PRN CONSULT Trazodone HCl 50 mg 10/25/24 21:00 10/25/24 21:12 Trazodone Hcl 50 Mg Tablet PO 11/24/24 20:59 50 mg HS PAULINA Administration Plan Kaylene Gordon is a 78-year-old female with a past medical history of Alzheimer's dementia, schizophrenia, and developmental delay who presented on the ED on 10/24 for acute encephalopathy likely secondary to urinary tract infection. #Sepsis secondary to UTI vs labial abscess evidenced by lactic acidosis #Lactic acidosis, resolved Altered mental status, decreased appetite, mild dyspnea; WBC 20.5, lactic acid 3.5 to 1.8, CRP 12.8; source unclear (CXR negative, mild cough, WBC in urine); qSOFA = 1 (AMS); on antibiotics since Sunday per hospice for presumed pneumonia Noted to have swelling, erythema, and discharge from left labia and so ultrasound was ordered that showed 2.8 x 1.5 x 1.5 cm soft tissue abscess ? Ceftriaxone 1 g IV HS (10/24-) ? Vancomycin (10/26-) ? Blood culture 10/24: NGTD ? Urine culture 10/24: Pending ? Genital culture 10/26: Pending ? Monitor vitals, mental status, urine output, and lactate clearance #Anxiety #Agitation ? Alprazolam 0.5 mg PO TID PRN ? Lorazepam 1 mg PO daily PRN ? Morphine 1 mg PO q4h PRN #? History of seizures ? Divalproex 250 mg PO TID #Insomnia ? Melatonin 6 mg PO HS PRN ? Trazodone 50 mg PO HS #Dementia (Alzheimer?s) #Developmental delay #Schizophrenia Advanced cognitive impairment with minimal speech, baseline altered mentation Hospital management: Disposition: treatment of UTI and labial abscess, pending cultures Diet: dysphagia 2 - mechanical altered Lines: PIV DVT prophylaxis: enoxaparin 40 mg SC daily CODE STATUS: DNR ----- Plan discussed with attending physician Dr. Kelli Lopez MD PGY-1 Internal Medicine Attending Provider Attestation/Addendum I have discussed and was present for the essential components of the history, physical examination, diagnosis, and treatment plan with the resident. I agree with the patient's care as documented by the resident and amended herein by me. Rui Pereira, DO. Patient seen and evaluated this AM. No acute events overnight however the patient was yelling and apparently really disturbing other patients however this appears to be her baseline per her caregiver. Patient is on all of her psych medications that she is on at home which we will continue. Will continue treatment with ceftriaxone for the patient's UTI, patient no longer septic at this point. Patient appears to have a labial abscess, ultrasound discovered a 2.8 x 1.5 x 1.5 cm soft tissue abscess. Pus could be expressed out of the lesion. As such, we will consult OB/Guynn for further recommendations however the patient is on ceftriaxone and vancomycin was added today for any MRSA coverage. Will continue to monitor closely Although this document has been carefully reviewed, there may still be some phonetic and other typographical errors. These errors are purely grammatical due to imperfections in the software program and should not be construed in any way to compromise the substance of the patient's medical care during this visit.
[2024-10-26 12:00] VITALS: BP 130/59; PULSE 68; RESP 17; TEMP 36.2; O2SAT 95
[2024-10-26] MEDS: VANCOMYCIN/NS 1 GM IVPB 200 ML IV (12:01)
--- NOTE | 2024-10-26 13:43 | XR_ITS ---
Examination: Ultrasound soft tissue peritoneum Technique: Grayscale sonographic images soft tissue perineum Exam date and time: October 26, 2024 1348 hrs. Indications: Swelling in the labial region with drainage this week Findings: Soft tissue abscess at the area concern 2.8 x 1.5 x 1.5 cm Impression: Soft tissue abscess left labia
[2024-10-26 16:00] VITALS: BP 159/71; PULSE 78; RESP 18; TEMP 36.6; O2SAT 95
--- NOTE | 2024-10-26 19:57 | PC.NURSE ---
MD Armstrong came and seen and examined the pt, caregiver at bedside. Per MD Armstrong will continue IV ABX at this time.
[2024-10-26 20:00] VITALS: BP 148/93; PULSE 76; RESP 16; TEMP 36.3; O2SAT 97
[2024-10-26] MEDS: cefTRIAXone/D5w 1gm IV premix 1 GM/50 ML BAG IV (20:51)
[2024-10-26] MEDS: traZODone HCL 50 MG TABLET PO (20:51)
--- NOTE | 2024-10-26 21:20 | PD.GYNCONS ---
ISSUE CLERK HPI Data of Consult Patient: new to practice Consult date: 10/26/24 Requesting Physician: James Galaviz MD Primary Care Provider: Physician No Primary/Family Consult Narrative Reason for consult: other (Left labial abscess) History of present illness: Patient is a 78-year-old female admitted 10/24/2024 by the internal medicine team. She has a history of Alzheimer's, developmental delay, and schizophrenia and primary team noted she had swelling, erythema, and discharge from left labia and so ends ultrasound was ordered that showed 2.8 x 1.5 x 1.5 cm soft tissue abscess. Vancomycin was started and a culture sent by the primary team.. No fevers overnight, WBC decreasing from 14.5 to 11, hemoglobin noted to drop from 11 to 9.4 and staff did not notice any blood in stool or urine. CHEM panel largely unremarkable. Gynecology was consulted to evaluate a left labial abscess in this 78-year-old female. She does not communicate at all during the exam. She has a blowing engineer at bedside that stated she noticed an abscess on her labia when she was cleaning the patient a couple of days ago. The blowing engineer says the patient's brother is in a half-way and he is also her medical decision-maker. There is a question on the chart whether the patient is in hospice or not. The patient is apparently a DNR. The labial abscess on ultrasound was about 2-1/2 x 1-1/2 cm. It is draining some purulent fluid. Patient has been afebrile on this admission. She has been on Rocephin and vancomycin. cc:: cc: James Galaviz MD Meds Home Medications and Allergies Home Medications ?Medication ?Instructions ?Recorded ?Confirmed ?Type divalproex 250 mg tablet,delayed 250 mg PO TID #0 tabs 11/24/16 10/25/24 History release (Depakote) docusate sodium 250 mg capsule 250 mg PO BID 01/09/23 10/25/24 History melatonin 5 mg tablet 5 mg PO HS PRN Insomnia 01/09/23 10/25/24 History alprazolam 0.5 mg tablet 0.5 mg PO TID PRN agitation 10/25/24 10/25/24 History lorazepam 2 mg/mL injection syringe 1 mg buccal QDAY PRN agitation 10/25/24 10/25/24 History morphine concentrate 20 mg/mL oral 15 mg PO QDAY PRN pain 10/25/24 10/25/24 History syringe (FOR ORAL USE ONLY) tramadol 50 mg tablet 50 mg PO QDAY 10/25/24 10/25/24 History trazodone 50 mg tablet 50 mg PO HS 10/25/24 10/25/24 History Allergies Allergy/AdvReac Type Severity Reaction Status Date / Time No Known Allergies Allergy Verified 02/11/24 18:06 Exam - ISSUE CLERK Vital Signs Temp Pulse Resp BP Pulse Ox O2 Del Method O2 Flow Rate 97.8 F 78 18 159/71 H 95 Room Air 2 10/26/24 16:00 10/26/24 16:00 10/26/24 16:00 10/26/24 16:00 10/26/24 16:10/26/24 16:10/26/24 08:00 Narrative Exam Patient is awake. She is not oriented to place or time. She rolled her eyes during the exam and blinked and smacked her lips but did not communicate. She did not respond to questions and did not react to a physical exam at all. She did not yell out. The patient seemed comfortable. The blowing engineer states that sometimes she does yell and lash out at providers. Constitutional Constitutional: no acute distress, thin, chronically ill appearing and cooperative Comments: Patient's right leg has been amputated. Routine Exam External: Present normal urethra appearance, vulvar erythema (Left side approximately 3 x 2 cm) and discharge (Purulent discharge from small defect left labia majora) ISSUE CLERK - Results Labs 10/26/24 07:10 10/26/24 07:10 Labs: Short CBC 10/26/24 Range/Units 07:10 WBC 11.2 H (3.6-11.0) Thou/mm3 Hgb 9.4 L (12.0-16.0) g/dL Hct 27.6 L (36.0-46.0) % Plt Count 185 (140-440) Thou/mm3 BMP 10/26/24 07:10 Sodium 137 Potassium 4.0 D Chloride 105 Carbon Dioxide 25.9 BUN 12 Creatinine 0.5 L Glucose 98 Calcium 8.1 L Assessment and Plan Assessment and plan (1) Vulvar abscess: Status: Acute Assessment and plan: Patient on Rocephin and vancomycin. Adequate treatment. If she goes home and can take oral medication, consider Augmentin 500 3 times daily for 10 days. Right now the abscess appears to be draining. It is actually smaller than it was before she got admitted according to her blowing engineer. Continue to monitor for size. No acute surgical need at this time. Continue pain medication as needed. Warm compresses to the area may help it drain faster.
[2024-10-27] VITALS: BP 151/63; PULSE 73; RESP 16; TEMP 36; O2SAT 95
[2024-10-27] MEDS: LORazepam 0.5 MG TABLET 1 MG PO (00:01)
[2024-10-27] MEDS: ALPRazoLAM 0.25 MG TABLET 0.5 MG PO (02:41)
[2024-10-27 04:00] VITALS: BP 110/54; PULSE 54; RESP 16; TEMP 36.8; O2SAT 93
[2024-10-27] MEDS: DIVALPROEX SOD EC 125 MG TABEC 250 MG PO ×2 (05:06→14:51)
[2024-10-27 06:44] LABS: Basophils % (Auto) 0 % (0-2.5); Eosinophils # (Auto) 0.2 Thou/mm3 (0.0-0.5); Eosinophils % (Auto) 3 % (0-10); Hematocrit 29.8 % (36.0-46.0); Hemoglobin 10.1 g/dL (12.0-16.0); Immature Granulocytes % (Auto) 1 % (0-0); Immature Granulocytes Auto 0.05 Thou/mm3 (0.00-0.00); Lymphocytes # (Auto) 1.9 Thou/mm3 (1.0-4.8); Lymphocytes % (Auto) 28 % (10-50); Mean Corpuscular HGB Conc 33.9 g/dl (31.0-37.0); Mean Corpuscular Hemoglobin 30.1 pg (25.0-35.0); Mean Corpuscular Volume 89 fL (80-100); Monocytes # (Auto) 0.9 Thou/mm3 (0.0-0.8); Monocytes % (Auto) 13 % (0-12); Neutrophils # (Auto) 3.7 Thou/mm3 (1.8-7.7); Neutrophils % (Auto) 55 % (37-80); Nucleated Red Blood Cell % 0 /100 WBC (0); Platelet Count 218 Thou/mm3 (140-440); RDW Standard Deviation 38.4 fL (36.4-46.3); Red Blood Count 3.35 Miln/mm3 (4.00-5.20); White Blood Count 6.7 Thou/mm3 (3.6-11.0)
[2024-10-27 06:51] LABS: Anion Gap 6 (7-16); BUN/Creatinine Ratio 20 Ratio (12-20); Blood Urea Nitrogen 10 mg/dL (9-23); Calcium 8.2 mg/dL (8.3-10.6); Carbon Dioxide 27.4 mMol/L (20.0-31.0); Chloride 110 mMol/L (98-107); Creatinine (Component) 0.5 mg/dL (0.6-1.3); Glucose 77 mg/dL (74-106); Osmolality,Calculated 282 (275-295); Potassium 3.5 mMol/L (3.4-5.1); Sodium 143 mMol/L (136-145); eGFR > 60 See Note
[2024-10-27 08:00] VITALS: BP 117/62; PULSE 58; RESP 18; TEMP 35.8; O2SAT 96
[2024-10-27] MEDS: ENOXAPARIN SOD INJ 40 MG/0.4 ML SYRINGE SC (09:04)
[2024-10-27] MEDS: VANCOMYCIN/NS 1 GM IVPB 200 ML IV (09:05)
[2024-10-27] MEDS: POTASSIUM CHLORIDE 20 mEq TABCR 40 MEQ PO (09:05)
[2024-10-27] MEDS: SODIUM CHLORIDE 0.9% 1000 ML 1,000 ML 75 ML IV (09:05)
[2024-10-27] MEDS: MORPHINE SULF INJ 10 MG/ML VIAL IVP (10:02)
--- NOTE | 2024-10-27 11:01 | PC.SS ---
SS follow up note; Possible discharge back to [facility] today.
[2024-10-27] MEDS: PIPER/TAZO 3.375 GM PREMIX 3.375 GM/50 ML BAG IV (11:14)
[2024-10-27 12:00] VITALS: BP 119/49; PULSE 74; RESP 16; TEMP 36.2; O2SAT 93
[2024-10-27 16:00] VITALS: BP 162/71; PULSE 79; RESP 16; TEMP 36.1; O2SAT 93
--- NOTE | 2024-10-27 16:51 | ESDS_ITS ---
Planned Discharge Date 10/27/24 DS: Providers Provider Date of admission: 10/24/24 22:20 Primary care physician: Physician No Primary/Family Admitting Provider: James Galaviz MD Attending Provider on Admission: Nico Pereira DO Consults: 10/25/24 11:56 Referral Registered Dietitian Routine Comment: 10/25/24 18:12 Referral Wound Care Routine Comment: 10/26/24 18:46 Consult to Gynecology Routine Comment: Left labial abscess 2.8 x 1.5 x 1.5 cm Consulting Provider: P[facility] ([facility])Jocelyn Attending Provider on DC: Soni Sharma MD Discharging Provider: Soni Sharma MD DS: Diagnosis Problem List Completed Was Problem List Reviewed/Reconciled?: Yes Hospital Course Hospital Course Hospital course: Kaylene Gordon is a 78-year-old female with a past medical history significant for Alzheimer's dementia, schizophrenia, and developmental delay who presented on the ED on 10/24 for AMS and admitted for acute encephalopathy and sespsis secondary to urinary tract infection. Patient found to have an elevated WBC, lactic acid, and CRP. CXR was negative despite endorsing a mild cough. Patient also was on oral Abx for 4 days for presumed PNA per hospice recommendations. Later in hospital course, patient noted to have swelling, erythema, and discharge from left labia and so soft tissue peritoneum and transvaginal ultrasound was ordered that showed 2.8 x 1.5 x 1.5 cm soft tissue abscess. Gynecology was consulted and recommended oral Abx for 10 days. Patient was transitioned from IV Abx to oral Abx prior to discharge as patient's white count and lactic acid improved. Pt seen and examined at bedside. Pt denies any complaints. Pt is medically cleared to be discharged today with the following instructions: Please take your new antibiotics: Augmentin and Doxycycline twice daily Please take your home medications as prescribed Continue with warm compresses and clean briefs every time abscess is changed Please see your PCP in 1 week, and return to the ED if symptoms worsen. Hospital discharge diagnoses treated during hospital stay: #Sepsis secondary to UTI vs labial abscess evidenced by lactic acidosis #Lactic acidosis, resolved #Anxiety #Agitation #? History of seizures #Insomnia #Dementia (Alzheimer?s) #Developmental delay #Schizophrenia Patient's plan and care discussed with my attending, Dr. Kelli Sharma MD PGY-2 Status at Discharge Cognitive/behavioral status at discharge: stable Time Spent with Patient Time attestation: Total time spent providing and/or coordinating discharge services: 35 Time spent: Greater than 30 minutes Exam Vital Signs Temp Pulse Resp BP Pulse Ox O2 Del Method O2 Flow Rate 97.0 F 79 16 162/71 H 93 L Room Air 2 10/27/24 16:00 10/27/24 16:00 10/27/24 16:00 10/27/24 16:00 10/27/24 16:10/27/24 16:00 10/26/24 08:00 Narrative Exam General: alert, does not respond to questions, yells intermittently HEENT: NC/AT, mucous membranes moist, bilateral sclera anicteric Cardiovascular: regular rate and rhythm, S1/S2 present, no murmurs appreciated Pulmonary: clear to auscultation bilaterally, no rales/rhonchi/wheezes Abdominal: soft, non-tender, non-distended, no rebound/guarding, normal bowel sounds present Musculoskeletal: right lower extremity amputation, no peripheral edema Skin: warm and dry, intact, no rashes Discharge Plan Plan Patient Disposition: HOME (Self Care) Prescriptions/Referrals Prescriptions/Med Rec: New amoxicillin-pot clavulanate 875-125 mg tablet 1 tab PO BID Qty: 20 0RF doxycycline hyclate 100 mg capsule 100 mg PO BID Qty: 20 0RF Continued divalproex [Depakote] 250 MG tablet,delayed release (DR/EC) 250 mg PO TID Qty: 0 docusate sodium 250 mg capsule 250 mg PO BID melatonin 5 mg Tablet 5 mg PO HS PRN (Reason: Insomnia) trazodone 50 mg tablet 50 mg PO HS tramadol 50 mg tablet 50 mg PO QDAY alprazolam 0.5 mg tablet 0.5 mg PO TID PRN (Reason: agitation) morphine concentrate 20 mg/mL syringe 15 mg PO QDAY PRN (Reason: pain) Rx Instructions: 5mg pain 1-3 10mg pain 4-6 15mg pain 7-10 lorazepam 2 mg/mL syringe 1 mg buccal QDAY PRN (Reason: agitation) Referrals: No Primary/Family,Physician [Primary Care Provider] - Patient/Caregiver Discharge Instructions Other Discharge Activity Instructions:: Please take your new antibiotics: Augmentin and Doxycycline twice daily Please take your home medications as prescribed Continue with warm compresses and clean briefs every time abscess is changed Please see your PCP in 1 week, and return to the ED if symptoms worsen. Education Materials: Sepsis Print Language: Vietnamese Stand Alone Forms: Cordelia Award Info., Patient Portal Info Letter Discharge Order Discharge Orders: Discharge (Routine); Ordered 10/27/24 Ordered By: Jerry Perez Quality Discharge Quality Measures VTE prophylaxis MD Attestestation MD Attestation I have discussed and was present for the essential components of the discharge history, physical examination, diagnosis, and discharge treatment plan with the resident. I agree with the patient's discharge care as documented by the resident and amended herein by me. Rui Pereira DO. The patient understood all discharge instructions, all questions were answered satisfactorily. The patient was instructed to return to the Emergency Department is symptoms worsened or persisted. Patient will be discharged on a course of Augmentin and doxycycline which will cover for both her labial abscess and UTI. OB consulted for the abscess agreed this should be adequate treatment, however if her symptoms worsen or persist, to return to the emergency department. The patient was stable and afebrile prior to discharge back to her facility Although this document has been carefully reviewed, there may still be some phonetic and other typographical errors. These errors are purely grammatical due to imperfections in the software program and should not be construed in any way to compromise the substance of the patient's medical care during this visit.
== END 2024-10-27 16:53 | disposition home or self-care (01) | DRG 689 ==
LOC: SERX 17:24 → SERHOLD 23:55 → S3SX 10-25 11:26
PROVIDERS: Emergency Medicine; Physician Assistant; Admitting Provider Internal Medicine; Emergency Provider Family Medicine; Visit Provider Student in an Organized Health Care Education/Training Program
DX: N39.0 Urinary tract infection, site not specified (principal); G92.9 Unspecified toxic encephalopathy; J18.9 Pneumonia, unspecified organism; F02.84 Dementia in other diseases classified elsewhere, unspecified severity, with anxiety; F02.818 Dementia in other diseases classified elsewhere, unspecified severity, with other behavioral disturbance; N76.4 Abscess of vulva; E87.20 Acidosis, unspecified; G47.00 Insomnia, unspecified; G30.9 Alzheimer's disease, unspecified; F20.9 Schizophrenia, unspecified; R56.9 Unspecified convulsions; Z66 Do not resuscitate; Z51.5 Encounter for palliative care; Z79.899 Other long term (current) drug therapy; R62.50 Unspecified lack of expected normal physiological development in childhood
CPT/HCPCS: 36415; 71045; 76830; 76882; 80048; 80053; 81001; 83605; 84145; 84484; 85025; 86140; 87040; 87070; 87075; 87077; 87081; 87086; 87186; 87205; 87400; 87811; 92526; 92610; 93005; 96365; 96372; 99285; J0696; J1650; J2270; J2543; J3370; J7030; J7040; A9270